=== PATIENT | male | born 1985 | race Two or more races ===

== ENCOUNTER 2016-11-22 16:16 | Emergency (ER) | payer MEDICAID ==
[~2016-11-22] VITALS: Ht 180.3 cm; Wt 117.9 kg
[2016-11-22] MEDS ORDERED: SODIUM CHLORIDE 0.9% 1,000 ML IV ONE (16:40)
[2016-11-22] MEDS ORDERED: NALBUPHINE HCL 10 MG/1ml INJECTION IV ONE (16:45)
[2016-11-22] MEDS ORDERED: METOCLOPRAMIDE HCL 5MG/ml INJ 2ml VIAL IV ONE (16:45)
[2016-11-22 17:18] VITALS: BP 154/93
[2016-11-22 17:21] LABS: Calcium 8.5 mg/dL (8.5-10.1); Magnesium 2.6 mg/dL (1.6-2.6); Potassium 3.8 mmol/L (3.5-5.1)
[2016-11-22 17:23] LABS: Basophils # (auto) 0 uL; Basophils % (auto) 0.3 % (0.0-2.0); DEFINITIVE VIEW TRANSMISSION; Eosinophils # (auto) 0.2 uL; Eosinophils % (auto) 1.8 % (0.0-7.0); Hematocrit 51.9 % (41.0-53.0); Lymphocytes # (auto) 1.9 uL; Lymphocytes % (auto) 17.9 % (10.0-50.0); Mean Corpuscular Hemoglobin 28.1 pg (28.0-32.0); Mean Corpuscular Hgb Conc. 32.8 g/dL (32.0-36.0); Mean Corpuscular Volume 85.7 fL (80.0-100.0); Mean Platelet Volume 8.1 fL (7.4-10.4); Monocytes # (auto) 0.5 uL; Monocytes % (auto) 4.8 % (0.0-12.0); Neutrophils % (auto) 75.2 % (37.0-80.0); Platelet Count (auto) 273 10^3/uL (140-450); Red Cell Distribution Width 13.7 % (11.6-16.0); White Blood Cell 10.7 10^3/uL (4.4-10.8)
== END 2016-11-22 18:19 | disposition home or self-care (01) ==
LOC: ER 16:28
DX: M54.16 Radiculopathy, lumbar region (principal); I10 Essential (primary) hypertension; F17.210 Nicotine dependence, cigarettes, uncomplicated; M79.1 Myalgia; F12.10 Cannabis abuse, uncomplicated
CPT/HCPCS: 36415; 72131; 80048; 83735; 85025; 85049; 96361; 96374; 96375; 99285; J2300; J2765; J7030

== ENCOUNTER → 2017-01-08 | Emergency (ER) | payer MEDICAID | END | disposition left against medical advice (07) | LOC: ER 23:24 | DX: S41.112A Laceration without foreign body of left upper arm, initial encounter (principal); Z53.21 Procedure and treatment not carried out due to patient leaving prior to being seen by health care provider; X58.XXXA Exposure to other specified factors, initial encounter; Y93.89 Activity, other specified; Y99.8 Other external cause status; Y92.89 Other specified places as the place of occurrence of the external cause ==

== ENCOUNTER 2018-07-02 19:39 | Emergency (ER) | payer SELFPAY ==
[~2018-07-02] VITALS: Ht 180.3 cm; Wt 136.1 kg
[2018-07-02 20:03] VITALS: BP 142/98
[2018-07-02] MEDS ORDERED: AZITHROMYCIN 250 MG TAB PO ONE (21:00)
[2018-07-02] MEDS ORDERED: cefTRIAXone SOD 1,000 MG VL IM ONE (21:00)
== END 2018-07-02 21:11 | disposition home or self-care (01) ==
LOC: ER 19:39
DX: N48.1 Balanitis (principal); A64 Unspecified sexually transmitted disease; F17.210 Nicotine dependence, cigarettes, uncomplicated; F12.10 Cannabis abuse, uncomplicated
CPT/HCPCS: 96372; 99283; J0696

== ENCOUNTER 2018-09-11 11:43 | Emergency (ER) | payer MEDICAID ==
[~2018-09-11] VITALS: Ht 180.3 cm; Wt 127.0 kg
[2018-09-11 11:52] VITALS: BP 156/101
[2018-09-11] MEDS ORDERED: KETOROLAC TROMETH 60MG/2ML VIAL IM ONE (12:15)
== END 2018-09-11 12:50 | disposition home or self-care (01) ==
LOC: ER 11:43
DX: M54.5 Low back pain (principal); F17.210 Nicotine dependence, cigarettes, uncomplicated; F12.90 Cannabis use, unspecified, uncomplicated
CPT/HCPCS: 96372; 99283; J1885